=== PATIENT | female | born 1940 | race Caucasian/White ===

== ENCOUNTER → 2024-03-13 14:06 | Outpatient (REF) | payer OTHER, SELFPAY | LOC: HWRAD 14:06 | PROVIDERS: ATTENDING PHYSICIAN Family Medicine | DX: E04.2 Nontoxic multinodular goiter (principal) | CPT/HCPCS: 76536 ==

== ENCOUNTER → 2024-08-19 13:38 | Outpatient (REF) | payer OTHER, SELFPAY | LOC: HWWDC 13:38 | PROVIDERS: ATTENDING PHYSICIAN Family Medicine | DX: M81.0 Age-related osteoporosis without current pathological fracture (principal); Z12.31 Encounter for screening mammogram for malignant neoplasm of breast | CPT/HCPCS: 77063; 77067; 77080 ==

== ENCOUNTER → 2024-09-16 13:52 | Outpatient (REF) | payer OTHER, SELFPAY | LOC: RAD 13:52 | PROVIDERS: ATTENDING PHYSICIAN Internal Medicine Endocrinology, Diabetes & Metabolism; FAMILY PHYSICIAN Family Medicine | DX: E04.2 Nontoxic multinodular goiter (principal) | CPT/HCPCS: 76536 ==

== ENCOUNTER 2024-12-22 09:45 | Emergency (ER) | payer OTHER, SELFPAY ==
[2024-12-22 10:03] VITALS: BP 159/94
[2024-12-22 10:33] LABS: % Basophils 0.5 % (0-2); % Eosinophils 1.5 % (0-6); % Immature Granulocytes 0.2 % (0-0.5); % Lymphocytes 24.3 % (20.5-51.1); % Monocytes 6.8 % (1.7-9.3); % Neutrophils 66.7 % (42.2-75.2); Absolute Eosinophils 0.1 10^3/uL (0-0.7); Absolute Monocytes 0.3 10^3/uL (0.1-0.6); Absolute Neutrophils 2.7 10^3/uL (1.4-6.5); Hematocrit 43.2 % (37.0-47.0); Hemoglobin 14.4 g/dL (12.0-16.0); Mean Corp Hgb Conc. 33.3 g/dL (33.0-37.0); Mean Corpuscular Hgb 30.6 pg (27.0-31.0); Mean Corpuscular Volume 91.7 fL (81.0-99.0); Mean Platelet Volume 10.4 fL (7.4-10.4); Nucleated Red Blood Cells % 0 %; Platelet Count 171 10^3/uL (130-400); Red Blood Cell Count 4.71 10^6/uL (4.20-5.40); Red Cell Dist. Width 12.7 % (11.5-14.5); White Blood Cell Count 4.1 10^3/uL (4.8-10.8)
[2024-12-22 10:41] LABS: ALT (SGPT) 14 U/L (0-35); AST (SGOT) 20 U/L (14-36); Alkaline Phosphatase 68 U/L (38-126); Blood Urea Nitrogen 15 mg/dl (7-17); Calcium 9.4 mg/dl (8.4-10.2); Carbon Dioxide 29 mmol/L (22-30); Chloride 104 mmol/L (98-107); Glucose 143 mg/dl (70-99); Lipase 94 U/L (23-300); Potassium 3.8 mmol/L (3.5-5.1); Sodium 141 mmol/L (135-145); Total Bilirubin 0.6 mg/dl (0.2-1.3); Total Protein 6.6 g/dl (6.3-8.2); eGFR > 60.00
[2024-12-22 10:52] LABS: Troponin I < 0.012 ng/ml
[2024-12-22 11:29] VITALS: BP 157/77
--- NOTE | 2024-12-22 11:35 | ED.GENMED ---
History of Present Illness
General
Chief Complaint: Chest Pain
Source: patient
Exam Limitations: none
Time Seen by Provider: 12/22/24 11:14
History of Present Illness
History of Present Illness:
84yoF with a history of coronary artery disease s/p PCI in 2019, SVT on digoxin, and hyperlipidemia presenting with her for evaluation of chest pain. Symptoms began 3 days ago. She had an episode of lightheadedness after getting out of the
car. She believes that she was dehydrated at that time. She has been having intermittent chest pain since then. She reports pressure in the left side of her chest that seems to come and go randomly. She is also having some intermittent
discomfort in her left arm. She denies any pleuritic or exertional pain. She had another episode of lightheadedness today while she was on the toilet after urinating. She denies any syncope. She denies any shortness of breath, diaphoresis,
nausea, leg swelling. Patient follows with [facility].
Past History
Past History
ED Past Medical History: Arrthythmia (followed at [facility] on dig), CAD and Other (orthostatic hypotension, arrthymia)
ED Past Surgical History: Cardiac (Stenting) and Other (Cataract surgery)
Social History
Tobacco: Non-smoker
Alcohol: None
Drug: None
Personal:
Living: with family
Employment: Retired
Family History
Family History: Hypertension
Phy Exam
General Physical Exam
General Presentation: well appearing and no apparent distress
General age: appears stated age
General Skin: warm and dry
General Habitus: normal
General Mental: alert
ENT Exam
ENT Exam: normocephalic
Cardiovascular Exam
Cardiovascular Exam: regular rate/rhythm, no edema and normal peripheral pulses
Pulmonary Exam
Pulmonary Exam: lungs clear, no respiratory distress, no rales, no crackles, no rhonchi and no wheezing
Neurological Exam
Neurological Exam: alert
Marcelo Coma Scale
Eye Opening: Spontaneous
Verbal Response: Oriented
Motor Response: Obeys Commands
GCS Total Score: 15
Skin Exam
Skin Exam: normal color and warm/dry
Psychiatric Exam
Psychiatric Exam: normal mood/affect
Scores
Heart Score for Chest Pain Patients
STEMI patient?: No
History: Slightly or Non-Suspicious
ECG: Nonspecific Repolarization
Age: >/= 65 years
Risk Factors: >/= 3 Risk Factors or History of CAD
Troponin: </= Normal Limit
Heart Score for Chest Pain Patients: 5
Heart Score Risk: 20.3% MACE over next 6 weeks
Course
Orders/Labs/Results
Orders:
Orders
12/22/24 09:47
EKG [Electrocardiogram (*1)] Urgent
Reason for Study: Chest Pain
EKG- Treatment ONCE
12/22/24 10:16
Complete Blood Count/With Diff Urgent
Comprehensive Metabolic Panel Urgent
Lipase Urgent
Troponin I Urgent
12/22/24 11:33
Cardiac Monitoring- Treatment ONCE
12/22/24 11:34
EKG- Treatment ONCE
CR Chest - 2 Views Urgent
Comment:
Reason For Exam: CP
12/22/24 13:15
Electrocardiogram (*1) Urgent
Reason for Study: Chest Pain
12/22/24 13:28
Digoxin Urgent
Troponin I Urgent
Abnormal Lab Results
12/22/24 12/22/24
10:16 13:28
WBC 4.1 L 10^3/uL
(4.8-10.8)
Absolute Lymphs (auto) 1.0 L 10^3/uL
(1.2-3.4)
Glucose 143 H mg/dl
(70-99)
Digoxin 0.5 L ng/ml
(0.8-2.0)
12/22/24 10:16
12/22/24 10:16
Vital Signs
Initial and Last Documented VS:
Initial Vital Signs
Temp Pulse Resp BP Pulse Ox
98.4 F 86 18 159/94 99
12/22/24 10:03 12/22/24 10:03 12/22/24 10:03 12/22/24 10:03 12/22/24 10:03
Last Documented Vital Signs
Temp Pulse Resp BP Pulse Ox
98.4 F 68 22 114/59 96
12/22/24 10:03 12/22/24 14:00 12/22/24 14:00 12/22/24 14:00 12/22/24 14:00
MDM/Problems Addressed
Differential Diagnosis Includes:
84yoF here with intermittent chest pain x several days. Had 2 episodes of lightheadedness since symptoms began. Not dizzy currently. No syncope or CP. She is mildly hypertensive with otherwise stable vital signs. She is well-appearing in no acute
distress. Exam reassuring. Differential diagnosis includes but is not limited to: Arrhythmia, ACS, angina, esophagitis, pneumonia
Initial ED plan: Cardiac labs and EKG obtained in triage. EKG shows normal sinus rhythm with nonspecific ST changes although EKG appears overall unchanged from prior. Troponin within normal limits. Will check digoxin level, repeat troponin/EKG,
and chest x-ray.
*EKG
Interpreted by ED Provider?: Yes
EKG Intrepretation Date: 12/22/24
Heart Rate: 84
Rate: normal
Rhythm: sinus and PAC's
[place]: normal axis
Interval: normal interval
QRS Pattern: normal QRS
Ischemia: non-specific ST changes
*Critical Care Note
Total Time (30-74mins, 75-104mins- exclusive of procedures): Not Applicable
Update Note
Update Note:
Repeat EKG and troponin unchanged. Chest x-ray negative for acute findings. Patient eager to be discharged and has already changed out of gown on reassessment. No indication for hospitalization. She has an appointment with her glue sprayer
scheduled in 4 days. Strict ED return precautions reviewed. Patient in agreement with plan and was discharged in stable condition.
ED Attending Note
-
Portions of this chart may have been created with voice recognition software.� Occasional wrong word or��sound alike� substitutions may have occurred due to the inherent limitations of voice recognition software.
Discharge Plan
Departure
Patient Disposition: Home (Routine Discharge)
Date of Disposition: 12/22/24
Time of Disposition: 14:17
Patient with high blood pressure during this ER visit?: Yes
Discharge Problem:
Chest pain
Instructions: Chest Pain NON-[facility] Vocational Counselor Follow Up
Prescriptions:
No Action
calcium carbonate-vitamin D2 1 EACH tablet
1 tab PO DAILY
digoxin 0.125 MG tablet
0.125 mg PO DAILY
cyclosporine [Restasis] 1 EACH dropperette
1 ea OP BID
atorvastatin 40 MG tablet
40 mg PO QPM
ticagrelor [Brilinta] 90 MG tablet
90 mg PO BID
aspirin 81 MG tablet,delayed release (DR/EC)
81 mg PO DAILY
Referrals:
Samantha Leyva MD [Family Provider] -
Activity Restrictions/Additional Instructions:
Please call your glue sprayer tomorrow for follow-up. Return to the ER immediately with any new or worsening symptoms.
Interventions
Interventions:
*Risk Screen - Suicide Last Done: 12/22/24 10:03
*General Assessment Last Done: 12/22/24 14:27
*Neglect/Abuse Screening Last Done: 12/22/24 14:27
*ED- Fall Risk Assessment Last Done: 12/22/24 14:27
*ED COVID-19 Vaccine History Last Done: 12/22/24 14:27
*Nursing Disposition Last Done: 12/22/24 14:30
ED- Cardiac Assessment Last Done: 12/22/24 14:27
Discharge Date and Time
Discharge Date/Time: 12/22/24 14:31
Print Language: TONGAN
[2024-12-22 13:28] VITALS: BP 116/58
[2024-12-22 13:50] LABS: Digoxin 0.5 ng/ml (0.8-2.0)
[2024-12-22 13:59] LABS: Troponin I < 0.012 ng/ml
[2024-12-22 14:00] VITALS: BP 114/59
== END 2024-12-22 14:31 | disposition home or self-care (01) ==
LOC: EMR 09:45
PROVIDERS: Physician Assistant; EMERGENCY PHYSICIAN Emergency Medicine; FAMILY PHYSICIAN Family Medicine
DX: R07.89 Other chest pain (principal); I25.10 Atherosclerotic heart disease of native coronary artery without angina pectoris; E78.5 Hyperlipidemia, unspecified; R42 Dizziness and giddiness
CPT/HCPCS: 99285; 71046; 80053; 80162; 83690; 84484; 85025; 93005

== ENCOUNTER → 2025-04-24 11:49 | Outpatient (REF) | payer OTHER, SELFPAY | LOC: MRI 3T 11:49 | PROVIDERS: ATTENDING PHYSICIAN Otolaryngology; FAMILY PHYSICIAN Family Medicine | DX: R42 Dizziness and giddiness (principal) | CPT/HCPCS: 70553; A9575 ==

== ENCOUNTER → 2025-06-12 10:34 | Outpatient (REF) | payer OTHER, SELFPAY | LOC: RAD 10:34 | PROVIDERS: ATTENDING PHYSICIAN Internal Medicine Endocrinology, Diabetes & Metabolism; FAMILY PHYSICIAN Family Medicine | DX: E04.2 Nontoxic multinodular goiter (principal) | CPT/HCPCS: 76536 ==

== ENCOUNTER → 2025-06-30 07:04 | Outpatient (REF) | payer OTHER, SELFPAY | LOC: MRI 3T 07:04 | PROVIDERS: ATTENDING PHYSICIAN Psychiatry & Neurology Neurology; FAMILY PHYSICIAN Family Medicine | DX: M48.02 Spinal stenosis, cervical region (principal) | CPT/HCPCS: 72141 ==

== ENCOUNTER → 2025-07-25 18:37 | Outpatient (REF) | payer OTHER, SELFPAY | LOC: MRI 18:37 | PROVIDERS: ATTENDING PHYSICIAN Psychiatry & Neurology Neurology; FAMILY PHYSICIAN Family Medicine | DX: R93.7 Abnormal findings on diagnostic imaging of other parts of musculoskeletal system (principal) | CPT/HCPCS: 72157; A9575 ==